=== PATIENT | female | born 1985 | race African-American/Black ===

== ENCOUNTER 2016-03-19 19:36 | Emergency (ER) | payer MEDICAID ==
[~2016-03-19] VITALS: Ht 180.3 cm; Wt 99.8 kg
[~2016-03-19 19:36] MED LIST: COLACE100 MG ORAL; HYDROCORTISON28.4 G5 RC; NKM
[2016-03-19 20:42] VITALS: BP 105/69
[2016-03-19] MEDS ORDERED: COLACE100 MG ORAL (20:54)
[2016-03-19] MEDS ORDERED: ANECREAM5 GM TP (20:58)
[2016-03-19 21:03] VITALS: BP 105/69
--- NOTE | 2016-03-23 03:42 | Emergency Room Report ---
History of Present Illness General Chief Complaint: Pain Source: Patient Present Illness HPI Patient is a 31-year-old female who presented after increased pain to her anal area. The patient for having a prior history of fissure and had increased pain. Patient was noted to have some difficulty with defecation was noted to have increased difficulty with bowel movements. She reported having brown stool with some blood when she wiped. As she denied fever. Patient denied any abdominal pain or vomiting. Allergies: Coded Allergies: No Known Allergies (Unverified , 06/13/14) Patient History Past Medical History: see triage record Last Menstrual Period: 03/05/16 Now: No Reviewed Nursing Documentation: PMH: Agreed, PSxH: Agreed Nursing Documentation-PMH Hx Gastrointestinal Problems: Yes - anal fisker Review of Systems All Other Systems: negative except mentioned in HPI Physical Exam Vital Signs Date Time Temp Pulse Resp B/P Pulse Ox O2 Delivery O2 Flow Rate FiO2 03/19/16 20:32 98.1 70 16 105/69 99 Room Air General Appearance: well appearing, no apparent distress, alert, GCS 15 Head: normocephalic, atraumatic ENT: hearing grossly normal, normal voice Neck: full range of motion, supple Respiratory: no respiratory distress, speaking full sentences Cardiovascular #1: normal inspection, normal peripheral pulses, regular rate, rhythm, no edema Gastrointestinal: normal inspection Rectal: normal exam, other - small fissure to anal area posteriorly Musculoskeletal: no calf tenderness Neurologic: normal gait Psychiatric: mood/affect normal Skin: no rash Medical Decision Making Diagnostic Impression: Primary Impression: Fissure in ano ER Course Patient presented for rectal pain. Differential diagnosis included was not limited to abscess, hemorrhoid, foreign body, fissure, tumor among others. Patient's benign exam and does not appear to require any further imaging or laboratory testing at this time. Patient given prescription for stool softeners.The patient is advised to follow up with primary care doctor in 1-2 days. Patient is advised to return if any worsening condition or if any changes in status that are concerning. Last Vital Signs Date Time Temp Pulse Resp B/P Pulse Ox O2 Delivery O2 Flow Rate FiO2 03/19/16 21:03 70 16 105/69 99 Room Air 03/19/16 20:42 98.0 Status: improved Disposition: HOME, SELF-CARE Condition: Stable Scripts Lidocaine (ANECREAM) 5 Gm Cream..g. 5 GM TP TWICE A DAY, #5 GM Prov: Aubrey Matias 03/19/16 Docusate Sodium* (COLACE*) 100 Mg Capsule 100 MG ORAL DAILY, #20 CAP Prov: Aubrey Matias 03/19/16 Referrals: [facility]ERR[facility] (PCP) Patient Instructions: Anal Fissure, Adult Aubrey Matias Mar 23, 2016 03:42
== END 2016-03-19 21:38 | disposition home or self-care (01) ==
LOC: EMR 21:06
DX: K60.2 Anal fissure, unspecified (principal)
CPT/HCPCS: 99282

== ENCOUNTER 2017-05-05 12:50 | Emergency (ER) | payer MEDICAID ==
[~2017-05-05] VITALS: Ht 180.3 cm; Wt 107.0 kg
[~2017-05-05 12:50] MED LIST changes: +ANECREAM5 GM TP
[2017-05-05 13:47] VITALS: BP 120/64
[2017-05-05] MEDS ORDERED: PREDNISONE20 MG ORAL (14:41)
[2017-05-05 15:01] VITALS: BP 120/80
--- NOTE | 2017-05-05 15:02 | Emergency Room Report ---
History of Present Illness General Chief Complaint: Skin Rash/Abscess Source: Patient Present Illness HPI 32-year-old female, in no significant past medical history presenting with intermittent itchy rash on arms and back for 5 days. Patient denies any new detergents, any new foods, states that she has taken one Benadryl with some relief. Denies any mosquito bites. No respiratory distress no wheezing no throat swelling Allergies: Coded Allergies: No Known Allergies (Unverified , 06/13/14) Patient History Past Medical History: see triage record Past Surgical History: none Pertinent Family History: none Reviewed Nursing Documentation: PMH: Agreed, PSxH: Agreed Nursing Documentation-PM Past Medical History: No Stated History Hx Gastrointestinal Problems: Yes - anal fisker Review of Systems All Other Systems: negative except mentioned in HPI Physical Exam Vital Signs Date Time Temp Pulse Resp B/P (MAP) Pulse Ox O2 Delivery O2 Flow Rate FiO2 05/05/17 12:58 97.9 73 16 120/64 100 Room Air 97.9 Sp02 EP Interpretation: reviewed, normal General Appearance: normal inspection, well appearing, no apparent distress, alert, GCS 15, non-toxic Head: normocephalic, atraumatic Eyes: bilateral eye normal inspection, bilateral eye PERRL, bilateral eye EOMI ENT: normal ENT inspection, normal pharynx, normal voice, moist mucus membranes Neck: normal inspection, full range of motion, supple Respiratory: normal inspection, lungs clear, normal breath sounds, no respiratory distress, no retraction, no wheezing, speaking full sentences, chest symmetrical Cardiovascular #1: normal inspection, regular rate, rhythm, normal capillary refill Cardiovascular #2: 2+ radial (R), 2+ radial (L) Musculoskeletal: normal inspection, back normal, normal range of motion, non- tender Neurologic: normal inspection, alert, oriented x3, responsive, motor strength/ tone normal, sensory intact, normal gait, speech normal Psychiatric: normal inspection, judgement/insight normal, memory normal Skin: other - Pruritic scratch [place] on back and arms, raised erythematous maculopapular rash noted Medical Decision Making Diagnostic Impression: Primary Impression: Hives ER Course 32-year-old female with rash Differential diagnosis Allergic rash/urticaria, benign dermatitis Plan: Steroids ER course: Patient has remained stable in ED Disposition: Patient will be discharged to home. Patient given prescription of prednisone. Strict return precautions discussed with patient such as fever, chills, rapid spread of rash, chest pain, sob, throat swelling, n/v/d. Patient is to follow up with their PMD within 5 days. Patient verbalized understanding and agrees with plan. Please note that this Emergency Department Report was dictated using [employer] technology software, occasionally this can lead to erroneous entry secondary to interpretation by the dictation equipment Last Vital Signs Date Time Temp Pulse Resp B/P (MAP) Pulse Ox O2 Delivery O2 Flow Rate FiO2 05/05/17 13:47 97.9 74 16 120/64 100 Room Air 97.9 Disposition: HOME, SELF-CARE Condition: Improved Scripts Prednisone* (PREDNISONE*) 20 Mg Tablet 40 MG ORAL DAILY for 3 Days, #6 TAB Prov: Oliver Ramachandran M.D. 05/05/17 Patient Instructions: [id number] Oliver Ramachandran M.D. May 05, 2017 15:02
== END 2017-05-05 15:02 | disposition home or self-care (01) ==
LOC: EMR 13:45
DX: L50.9 Urticaria, unspecified (principal)
CPT/HCPCS: 99283